=== PATIENT | female | born 1940 | race Caucasian/White ===

== ENCOUNTER 2017-07-09 09:41 | Emergency (ER) | payer OTHER ==
[2017-07-09] MEDS: ONDANSETRON 4 MG INJ IV (10:44)
[2017-07-09] MEDS: morphine 4 MG/ML VIAL IV (10:44)
[2017-07-09] MEDS: traMADol 50 MG TAB PO (12:52)
== END 2017-07-09 13:07 | disposition home or self-care (01) ==
LOC: E/R 09:41
DX: M54.5 Low back pain (principal); I10 Essential (primary) hypertension; I50.9 Heart failure, unspecified; E11.9 Type 2 diabetes mellitus without complications; Z79.82 Long term (current) use of aspirin; Z79.84 Long term (current) use of oral hypoglycemic drugs; Z87.891 Personal history of nicotine dependence
CPT/HCPCS: 96374; 96375; 99284-25